=== PATIENT | male | born 1955 ===

== ENCOUNTER 2021-04-17 07:00 | Inpatient (IN) | payer OTHER ==
[~2021-04-17] VITALS: Ht 180.3 cm; Wt 103.0 kg
[2021-04-17] MEDS ORDERED: SINGULAIR10 MG PO (09:38)
[2021-04-17] MEDS ORDERED: SPIRIV IH (09:40)
[2021-04-17] MEDS ORDERED: GABAPE PO (09:40)
[2021-04-17] MEDS ORDERED: CENTRUM COMPLE1 EACH PO (09:41)
[2021-04-17] MEDS ORDERED: GLUMETZA500 MG PO (09:41)
[2021-04-17] MEDS ORDERED: CHILDREN'S ASPI81 MG PO (09:41)
[2021-04-17] MEDS ORDERED: SIMVAST PO (09:42)
[2021-04-17] MEDS ORDERED: COMPLETE OMEGA1 EACH PO (09:42)
[2021-04-17] MEDS ORDERED: TIMOPTIC (09:43)
[2021-04-17] MEDS ORDERED: VITAMIN D PO (09:43)
[2021-04-17] MEDS ORDERED: VITAMIN C PO (09:44)
[2021-04-24] MEDS ORDERED: OXYC1TAB9 PO (08:14)
[2021-04-24] MEDS ORDERED: BACTRIM DS TAB1 EACH PO (08:14)
[2021-04-24] MEDS ORDERED: INTEGRA PLUS C1 EACH PO (08:14)
[2021-04-24] MEDS ORDERED: XARELTO10 MG PO (08:14)
== END 2021-04-24 16:01 | DRG 470 ==
LOC: SURH 04-22 07:00 → O/R 04-22 07:35 → SURH 04-22 10:45
PROVIDERS: ADMIT Orthopaedic Surgery Sports Medicine; ATTEND Orthopaedic Surgery Sports Medicine
PROC: 0SR90J9 Replacement of Right Hip Joint with Synthetic Substitute, Cemented, Open Approach (ICD-10-PCS; principal; 2021-04-22 10:45)
DX: M16.11 Unilateral primary osteoarthritis, right hip (principal)